=== PATIENT | female | born 1970 | race Caucasian/White ===

== ENCOUNTER 2016-10-10 10:40 | Emergency (ER) | payer BC, OTHER ==
[~2016-10-10] VITALS: Ht 175.3 cm; Wt 74.8 kg
[2016-10-10] MEDS ORDERED: PROT1TAB2 PO (10:51)
[2016-10-10] MEDS ORDERED: LORA-376 (10:51)
[2016-10-10] MEDS ORDERED: HYDR12.55 PO (10:51)
[2016-10-10 12:28] LABS: BASO % 0.6 % (0.0-1.0); EOS # 0.1 K/mm3 (0.0-0.50); LARGE UNSTAINED CELL # 0.1 K/mm3 (0.0-0.4); LARGE UNSTAINED CELL % 1.4 % (0.0-4.0); LYMPH # 2.4 K/mm3 (1.5-4.5); LYMPH % 31.3 % (24.0-44.0); MEAN CORPUSCULAR HEMOGLOBIN 31.3 pg (27.0-33.0); MEAN CORPUSCULAR HGB CONC 34.2 g/dl (32.0-36.5); MEAN CORPUSCULAR VOLUME 91.5 fl (80.0-96.0); MONO # 0.3 K/mm3 (0.0-0.8); MONO % 4.3 % (0.0-5.0); NEUTROPHILS # 4.7 K/mm3 (1.8-7.7); NEUTROPHILS % 61.4 % (36.0-66.0); PLATELET COUNT, AUTOMATED 127 k/mm3 (150-450); RED CELL DISTRIBUTION WIDTH 12.9 % (11.5-14.5); WHITE BLOOD COUNT 7.6 K/mm3 (4.0-10.0)
--- NOTE | 2016-10-10 12:32 | REP ---
Chest one-view HISTORY: Chest pain Comparison: 05/19/2010 The lungs are clear. The heart is normal in size. The pulmonary vasculature is normal in appearance. Impression: No acute disease. Signed by Hira Flores MD 10/10/2016 12:23 P
[2016-10-10 13:38] LABS: ANION GAP 10 MEQ/L (8-16); BLOOD UREA NITROGEN 12 MG/DL (7-18); CALCIUM LEVEL 8.7 MG/DL (8.5-10.1); CARBON DIOXIDE LEVEL 27 MEQ/L (21-32); CHLORIDE LEVEL 101 MEQ/L (98-107); CREATININE FOR GFR 0.76 MG/DL (0.55-1.02); GLOMERULAR FILTRATION RATE > 60.0 (>58); GLUCOSE, FASTING 97 MG/DL (70-105); POTASSIUM SERUM 3.9 MEQ/L (3.5-5.1); SODIUM LEVEL 138 MEQ/L (136-145)
[2016-10-10 14:38] VITALS: BP 133/90
--- NOTE | 2016-10-11 04:55 | ECGEPIP ---
Stationary ECG Study 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
== END 2016-10-10 14:53 | disposition home or self-care (01) ==
LOC: M ED 13:37
DX: R07.89 Other chest pain (principal)

== ENCOUNTER → 2017-03-23 | Outpatient (REF) | payer BC ==
[~2017-03-23] MED LIST: HYDR12.55 PO; LORA0.5T11; PROT1TAB2 PO
== END ==
LOC: M LAB REF 12:58
PROVIDERS: ATTEND Nurse Practitioner Family
DX: M10.9 Gout, unspecified (principal)

== ENCOUNTER → 2017-08-11 | Outpatient (REF) | payer BC ==
[2017-08-11 14:14] LABS: URIC ACID 6.9 MG/DL (2.6-6.0)
== END ==
LOC: M LAB REF 13:41
DX: M10.9 Gout, unspecified (principal)
CPT/HCPCS: 84550